=== PATIENT | male | born 1945 | race Caucasian/White ===

== ENCOUNTER 2018-10-15 13:41 | Inpatient (IN) | payer MEDICARE, OTHER ==
[~2018-10-15] VITALS: Ht 170.2 cm; Wt 73.6 kg
[2018-10-15] MEDS ORDERED: potassium Cl 40MEQ/NS 500ml 500 ML IV PRN ×2 (13:45)
[2018-10-15] MEDS ORDERED: ondansetron/PF 4mg/2ml inj IV PRN (13:45)
[2018-10-15] MEDS ORDERED: morphine 2 MG/ML inj. syringe IV PRN (13:45)
[2018-10-15] MEDS ORDERED: magnesium Cl slow-release 64mg tablet PO PRN (13:45)
[2018-10-15] MEDS ORDERED: potassium Cl 20 mEq SR tablet PO PRN ×2 (13:45)
[2018-10-15] MEDS ORDERED: magnesium 4gm in 100ml NS 100 ML IV PRN (13:45)
[2018-10-15 14:00] VITALS: BP 143/83
[2018-10-15] MEDS ORDERED: heparin 10,000 units/1 ML INJ IV PRN (14:00)
[2018-10-15] MEDS ORDERED: ASPI-1265 PO (14:17)
[2018-10-15] MEDS ORDERED: SIMV40TA PO (14:19)
[2018-10-15] MEDS: heparin 25,000 UNIT/250ml bag 250 ML IV SCH ×3 (14:21→20:53)
[2018-10-15 14:29] LABS: BASOPHILS % (AUTO) 0.3 % (0-1); EOSINOPHILS # (AUTO) 0.1 X10'3 (0-0.9); EOSINOPHILS % (AUTO) 1.2 % (0-6); HEMATOCRIT 41.7 % (42.0-52.0); HEMOGLOBIN 13.6 g/dl (14.0-17.9); LYMPHOCYTES # (AUTO) 1.4 X10'3 (1.1-4.8); LYMPHOCYTES % (AUTO) 15.7 % (21-51); MEAN CORPUSCULAR HEMOGLOBIN 30.5 PG (27.0-31.0); MEAN CORPUSCULAR HGB CONC 32.6 % (33.0-36.5); MEAN CORPUSCULAR VOLUME 93.5 FL (78-98); MEAN PLATELET VOLUME 9.6 FL (7.4-10.4); MONOCYTES # (AUTO) 0.6 X10'3 (0-0.9); MONOCYTES % (AUTO) 7.1 % (2-12); NEUTROPHILS # (AUTO) 6.7 X10'3 (1.8-7.7); NEUTROPHILS % (AUTO) 75.7 % (42-75); PLATELET COUNT 180 X10'3 (140-440); RED BLOOD COUNT 4.46 X10'6 (4.70-6.10); RED CELL DISTRIBUTION WIDTH 14.5 % (11.5-14.5); WHITE BLOOD COUNT 8.8 X10'3 (4.5-11.0)
[2018-10-15 14:44] LABS: INR 1.1 INR; PARTIAL THROMBOPLASTIN TIME 43 SECONDS (22-32); PROTHROMBIN TIME 10.7 SECONDS (9.0-12.0)
[2018-10-15] MEDS: tirofiban 5mg in NS 100mL 100 ML IV SCH ×2 (19:26→23:01)
[2018-10-15 20:53] LABS: ANION GAP 8 (8-16); BLOOD UREA NITROGEN 26 MG/DL (7-18); CHLORIDE 103 MMOL/L (99-107); GLUCOSE 83 MG/DL (70-104); POTASSIUM 4.2 MMOL/L (3.5-5.1); SODIUM 140 MMOL/L (135-145); TOTAL CARBON DIOXIDE 28.9 MMOL/L (24-32); eGFR 73 ML/MIN
[2018-10-15 20:54] LABS: ALANINE AMINOTRANSFERASE 19 U/L (12-78); ALBUMIN 3.4 G/DL (3.4-5.0); ALBUMIN/GLOBULIN RATIO 1.1 (1.1-1.5); ALKALINE PHOSPHATASE 104 IU/L (46-116); ASPARTATE AMINO TRANSFERASE 36 U/L (10-37); BILIRUBIN,TOTAL 0.3 MG/DL (0.1-1.0); TOTAL PROTEIN 6.4 G/DL (6.4-8.2)
[2018-10-16] VITALS (11 sets, daily range): BP systolic 125–150; BP diastolic 57–86
[2018-10-16 03:17] LABS: BASOPHILS # (AUTO) 0.1 X10'3 (0-0.2); BASOPHILS % (AUTO) 0.8 % (0-1); EOSINOPHILS # (AUTO) 0.1 X10'3 (0-0.9); EOSINOPHILS % (AUTO) 1.6 % (0-6); HEMOGLOBIN 12.6 g/dl (14.0-17.9); LYMPHOCYTES # (AUTO) 1.5 X10'3 (1.1-4.8); LYMPHOCYTES % (AUTO) 16.5 % (21-51); MEAN CORPUSCULAR HEMOGLOBIN 30.2 PG (27.0-31.0); MEAN CORPUSCULAR HGB CONC 32.3 % (33.0-36.5); MEAN CORPUSCULAR VOLUME 93.4 FL (78-98); MEAN PLATELET VOLUME 9.5 FL (7.4-10.4); MONOCYTES # (AUTO) 0.5 X10'3 (0-0.9); MONOCYTES % (AUTO) 5.3 % (2-12); NEUTROPHILS # (AUTO) 6.7 X10'3 (1.8-7.7); NEUTROPHILS % (AUTO) 75.8 % (42-75); PLATELET COUNT 155 X10'3 (140-440); RED BLOOD COUNT 4.17 X10'6 (4.70-6.10); RED CELL DISTRIBUTION WIDTH 14.2 % (11.5-14.5); WHITE BLOOD COUNT 8.8 X10'3 (4.5-11.0)
[2018-10-16 03:32] LABS: ALBUMIN 3.4 G/DL (3.4-5.0); ANION GAP 7 (8-16); BLOOD UREA NITROGEN 23 MG/DL (7-18); BUN/CREATININE RATIO 27.7 (5.4-32.0); CALCIUM 8.7 MG/DL (8.5-10.1); CHLORIDE 102 MMOL/L (99-107); CHOL/HDL RATIO 3.8 (0.00-4.99); CHOLESTEROL 152 MG/DL (0-200); CREATININE 0.83 MG/DL (0.60-1.10); GLUCOSE 98 MG/DL (70-104); HDL CHOLESTEROL 40 MG/DL (35-60); LDL CHOLESTEROL 97 MG/DL (50-100); MAGNESIUM 2.1 MG/DL (1.5-2.4); SODIUM 138 MMOL/L (135-145); TOTAL CARBON DIOXIDE 29.5 MMOL/L (24-32); TRIGLYCERIDES 114 MG/DL (20-135); eGFR > 90 ML/MIN
[2018-10-16] MEDS: heparin 25,000 UNIT/250ml bag 250 ML IV SCH (03:50)
[2018-10-16] MEDS: K and/or MAG REPLACEMENT MC SCH (06:56)
[2018-10-16] MEDS: metoprolol tartrate 25mg tablet PO SCH ×2 (07:10→21:32)
[2018-10-16] MEDS ORDERED: atorvastatin 20mg tablet PO SCH (08:00)
[2018-10-16] MEDS: famotidine 20mg tablet PO SCH (08:14)
[2018-10-16] MEDS ORDERED: aspirin 81mg tablet.DR PO SCH (08:30)
[2018-10-16] MEDS: tirofiban 5mg in NS 100mL 100 ML IV SCH ×2 (09:42→17:29)
[2018-10-16] MEDS ORDERED: heparin 1,000unit/ml 10ml vial 10 ML ONE (14:09)
[2018-10-16] MEDS ORDERED: iohexol 350MG/ML 100ml bottle IV ONE (14:09)
[2018-10-16] MEDS ORDERED: nitroGLYCERIN-Tridil 50MG/D5W 250 ML IV ONE (14:09)
[2018-10-16] MEDS ORDERED: LIDOcaine 1% (10mg/ml)w/preservative injection 20ml MDV ONE (14:09)
[2018-10-16] MEDS ORDERED: iohexol 350 MG/ML 50ML vial IV ONE (14:09)
[2018-10-16] MEDS ORDERED: midazolam 2 mg/2 ml injection ONE (14:09)
[2018-10-16] MEDS ORDERED: fentaNYL/PF 50MCG/1 ML 2ML syringe ONE (14:09)
[2018-10-16] MEDS ORDERED: nitroGLYCERIN 0.4mg SUBLingual tab SL PRN (14:20)
[2018-10-16] MEDS: ipratropium/albuterol 3ml nebule NEB SCH ×3 (15:00→23:22)
[2018-10-16] MEDS ORDERED: iohexol 350 MG/1 ML 200ml bottle ONE (15:11)
[2018-10-16] MEDS ORDERED: heparin 1,000 UNITS/NS 500ml 500 ML ONE (15:30)
[2018-10-16] MEDS ORDERED: clopidogrel 300mg tablet ONE (16:06)
[2018-10-16] MEDS ORDERED: tirofiban 5mg in NS 100mL 100 ML IV ONE (16:33)
[2018-10-16] MEDS ORDERED: aspirin 81mg tab.chew PO ONE (16:51)
[2018-10-16] MEDS ORDERED: clopidogrel 300mg tablet PO ONE (16:55)
[2018-10-17] VITALS (12 sets, daily range): BP systolic 105–158; BP diastolic 64–83
[2018-10-17] MEDS: tirofiban 5mg in NS 100mL 100 ML IV SCH ×2 (00:19→07:37)
[2018-10-17] MEDS: ipratropium/albuterol 3ml nebule NEB SCH ×3 (03:00→11:00)
[2018-10-17 04:44] LABS: BASOPHILS % (AUTO) 0.4 % (0-1); EOSINOPHILS # (AUTO) 0.1 X10'3 (0-0.9); EOSINOPHILS % (AUTO) 1.5 % (0-6); HEMATOCRIT 35.3 % (42.0-52.0); HEMOGLOBIN 11.9 g/dl (14.0-17.9); LYMPHOCYTES # (AUTO) 0.8 X10'3 (1.1-4.8); LYMPHOCYTES % (AUTO) 12.3 % (21-51); MEAN CORPUSCULAR HEMOGLOBIN 30.9 PG (27.0-31.0); MEAN CORPUSCULAR HGB CONC 33.6 % (33.0-36.5); MEAN CORPUSCULAR VOLUME 91.8 FL (78-98); MEAN PLATELET VOLUME 9.6 FL (7.4-10.4); MONOCYTES # (AUTO) 0.4 X10'3 (0-0.9); MONOCYTES % (AUTO) 6.7 % (2-12); NEUTROPHILS # (AUTO) 5.3 X10'3 (1.8-7.7); NEUTROPHILS % (AUTO) 79.1 % (42-75); PLATELET COUNT 153 X10'3 (140-440); RED BLOOD COUNT 3.84 X10'6 (4.70-6.10); RED CELL DISTRIBUTION WIDTH 13.8 % (11.5-14.5); WHITE BLOOD COUNT 6.7 X10'3 (4.5-11.0)
[2018-10-17 04:57] LABS: ANION GAP 7 (8-16); BLOOD UREA NITROGEN 15 MG/DL (7-18); BUN/CREATININE RATIO 17.6 (5.4-32.0); CALCIUM 8.2 MG/DL (8.5-10.1); CHLORIDE 107 MMOL/L (99-107); CHOL/HDL RATIO 4.3 (0.00-4.99); CHOLESTEROL 136 MG/DL (0-200); CREATININE 0.85 MG/DL (0.60-1.10); GLUCOSE 94 MG/DL (70-104); HDL CHOLESTEROL 32 MG/DL (35-60); LDL CHOLESTEROL 84 MG/DL (50-100); POTASSIUM 3.7 MMOL/L (3.5-5.1); SODIUM 141 MMOL/L (135-145); TOTAL CARBON DIOXIDE 26.6 MMOL/L (24-32); TRIGLYCERIDES 173 MG/DL (20-135); eGFR 88 ML/MIN
[2018-10-17] MEDS: famotidine 20mg tablet PO SCH (07:27)
[2018-10-17] MEDS: K and/or MAG REPLACEMENT MC SCH (07:29)
[2018-10-17] MEDS: metoprolol tartrate 25mg tablet PO SCH (07:30)
[2018-10-17] MEDS ORDERED: clopidogrel 75mg tablet PO SCH (08:00)
[2018-10-17] MEDS ORDERED: lisinopril 5mg tablet PO SCH (08:00)
[2018-10-17] MEDS ORDERED: aspirin 325mg tablet, delayed-release (Ecotrin) PO SCH (08:00)
[2018-10-17] MEDS ORDERED: atorvastatin 20mg tablet PO SCH (08:00)
[2018-10-17] MEDS ORDERED: METO25TA6 PO ×2 (11:07→11:19)
[2018-10-17] MEDS ORDERED: LISI-642 PO ×2 (11:07→11:19)
[2018-10-17] MEDS ORDERED: CLOP75TA35 PO ×2 (11:07→11:19)
[2018-10-17] MEDS ORDERED: NITR0.4T51 SL ×2 (11:07→11:19)
== END 2018-10-17 11:42 | disposition home or self-care (01) | DRG 246 ==
LOC: PCU 3S 13:41 → CICU 2S 10-16 16:42
PROVIDERS: ADMIT Internal Medicine; ATTEND Internal Medicine
PROC: 027034Z Dilation of Coronary Artery, One Artery with Drug-eluting Intraluminal Device, Percutaneous Approach (ICD-10-PCS; principal; 2018-10-16)
PROC: 02713ZZ Dilation of Coronary Artery, Two Arteries, Percutaneous Approach (ICD-10-PCS; 2018-10-16)
PROC: 4A023N7 Measurement of Cardiac Sampling and Pressure, Left Heart, Percutaneous Approach (ICD-10-PCS; 2018-10-16)
PROC: B2111ZZ Fluoroscopy of Multiple Coronary Arteries using Low Osmolar Contrast (ICD-10-PCS; 2018-10-16)
PROC: B2151ZZ Fluoroscopy of Left Heart using Low Osmolar Contrast (ICD-10-PCS; 2018-10-16)
DX: T82.855A Stenosis of coronary artery stent, initial encounter (principal); I21.4 Non-ST elevation (NSTEMI) myocardial infarction; J96.01 Acute respiratory failure with hypoxia; E78.5 Hyperlipidemia, unspecified; F03.90 Unspecified dementia, unspecified severity, without behavioral disturbance, psychotic disturbance, mood disturbance, and anxiety; F31.9 Bipolar disorder, unspecified; G89.4 Chronic pain syndrome; I10 Essential (primary) hypertension; J44.9 Chronic obstructive pulmonary disease, unspecified; Y83.8 Other surgical procedures as the cause of abnormal reaction of the patient, or of later complication, without mention of misadventure at the time of the procedure; I25.10 Atherosclerotic heart disease of native coronary artery without angina pectoris; Z96.641 Presence of right artificial hip joint; I25.2 Old myocardial infarction; Z90.2 Acquired absence of lung [part of]; Z79.02 Long term (current) use of antithrombotics/antiplatelets; Z79.82 Long term (current) use of aspirin; Z79.899 Other long term (current) drug therapy; Z87.891 Personal history of nicotine dependence; Y92.89 Other specified places as the place of occurrence of the external cause
CPT/HCPCS: 92920; 92921; 93306; 93458; C9600; 36415; 71045; 80048; 80053; 80061; 83735; 84484; 85025; 85347; 85610; 85730; 87070; 93005; 94640; 94760; 99152; 99153; A6257; C1725; C1769; C1874; G0378; J1644; J2001; J2250; J2405; J3010; J3246; J3490; Q9967